=== PATIENT | male | born 1940 | race African-American/Black ===

== ENCOUNTER 2018-07-04 22:20 | Inpatient (IN) | payer MEDICARE, BC, MEDICAID ==
[~2018-07-04] VITALS: Ht 175.3 cm; Wt 88.0 kg
[~2018-07-04 22:20] MED LIST: AMLO5TAB4 PO; ASPI-1159 PO; ATOR-2 PO; CHOL100046 PO; CLOP75TA33 PO; LISI10TA5 MT; SUCCINYLCHOLINE CHLORIDE 200MG/10ML IV ONE; TAMS0.4C31 PO
[2018-07-04] MEDS ORDERED: ONDANSETRON HCL 4MG/2ML INJ IV STA (22:50)
[2018-07-04] MEDS ORDERED: SODIUM CHLORIDE 0.9% 1,000 ML IV ONE (22:50)
[2018-07-04] MEDS ORDERED: SUCCINYLCHOLINE CHLORIDE 200MG/10ML IV ONE (23:00)
[2018-07-04] MEDS ORDERED: SODIUM CHLORIDE 0.9% 1000ML BAG (SEPSIS BOLUS) IV ONE (23:00)
[2018-07-04] MEDS ORDERED: PIPERACILLIN/TAZ 3.375G PREMIX 50 ML IV ONE (23:00)
[2018-07-04] MEDS ORDERED: VANCOMYCIN 1 G PREMIX 200 ML IV ONE (23:00)
[2018-07-04] MEDS ORDERED: PROPOFOL 10MG/ML 100ML 100 ML IV ONE (23:00)
[2018-07-04] MEDS ORDERED: LEVETIRACETAM 1000MG/100ML 100 ML IV ONE (23:00)
[2018-07-04 23:15] LABS: HEMATOCRIT. 43.1 % (42.0-52.0); HEMOGLOBIN. 14.3 g/dL (14.0-18.0); MEAN CORPUSCULAR HEMOGLOBIN 33.9 pg (28.0-32.0); MEAN CORPUSCULAR VOLUME 102.3 fL (80.0-94.0); MEAN PLATELET VOLUME 7.2 fl (7.4-10.4); PLATELET 187 x1000/uL (130-400); RED BLOOD CELL COUNT 4.21 mill/uL (4.7-6.1); RED CELL DISTRIBUTION WIDTH 13.5 % (11.6-14.6)
[2018-07-04 23:22] LABS: CHLORIDE 111 mEq/L (98-107)
[2018-07-04 23:23] LABS: PROTHROMBIN TIME 10.5 sec (9.6-11.0)
[2018-07-04] MEDS ORDERED: ONDANSETRON HCL 4MG/2ML INJ IV PRN (23:30)
[2018-07-04] MEDS ORDERED: IPRATROPIUM/ALBUTEROL 0.5-3(2.5)MG/3ML NEB HHN PRN (23:30)
[2018-07-04] MEDS ORDERED: LORAZEPAM 2MG/ML CPJ IV PRN (23:30)
[2018-07-04] MEDS ORDERED: ACETAMINOPHEN 325MG TABLET NG PRN (23:30)
[2018-07-04 23:51] LABS: CLARITY URINE CLEAR (CLEAR); COLOR URINE YELLOW (YELLOW); KETONES URINE NEGATIVE (NEGATIVE); LEUKOCYTE ESTERASE URINE NEGATIVE (NEGATIVE); NITRITE URINE NEGATIVE (NEGATIVE); OCCULT BLOOD URINE NEGATIVE (NEGATIVE); PH URINE 5.5 (4.5-8.0); PROTEIN URINE TRACE (NEGATIVE)
[2018-07-05] VITALS (88 sets, daily range): BP systolic 100–152; BP diastolic 40–86
[2018-07-05] LABS: BG BASE EXCESS -3.1 mmol/L (-2.0-2.0); BG CARBOXYHEMOGLOBIN 0.3 % (0.5-1.5); BG DEOXYHEMOGLOBIN 0.2 % (0.0-5.0); BG FRACTION INSPIRED OXYGEN 100; BG HCO3 ACT 21.7 mmol/L (22.0-26.0); BG METHEMOGLOBIN 0.4 % (0.0-1.5); BG OXYGEN SATURATION 99.8 % (92.0-98.5); BG OXYHEMOGLOBIN 99.1 % (94.0-97.0); BG PCO2 38.2 mmHg (35.0-45.0); BG PH 7.373 (7.350-7.450); BG PIP 22 cmH2O; BG PO2 553.9 mmHg (75.0-100.0); BG SAMPLE SITE LEFT BRACHIAL; BG TIDAL VOLUME(mL) 550 mL; BG TOTAL HEMOGLOBIN 13.8 g/dL (12.0-18.0); BG VENT MODE VENT - A/C; BG VENT RATE 14 set
[2018-07-05 01:53] LABS: PLATELET ESTIMATE NORMAL
[2018-07-05] MEDS: DEXT 5%/0.45% NACL 1000ML 1,000 ML IV SCH ×2 (02:09→17:50)
[2018-07-05] MEDS: LEVETIRACETAM 1,000 MG in SODIUM CHLORIDE 0.9% 100 ML IV SCH ×3 (02:48→20:32)
[2018-07-05] MEDS: PROPOFOL 10MG/ML 100ML 100 ML IV PRN ×3 (04:37→23:55)
[2018-07-05 05:38] LABS: BASOPHILS % 0.3 % (0.0-2.0); EOSINOPHILS % 0.4 % (0.0-5.0); HEMATOCRIT. 40.7 % (42.0-52.0); HEMOGLOBIN. 13.4 g/dL (14.0-18.0); MEAN CORPUSCULAR HEMOGLOBIN 33.7 pg (28.0-32.0); MEAN CORPUSCULAR VOLUME 102.2 fL (80.0-94.0); MEAN PLATELET VOLUME 7.5 fl (7.4-10.4); MONOCYTES % 5.9 % (2.0-8.0); NEUTROPHILS % 81.4 % (40.0-76.0); PLATELET 187 x1000/uL (130-400); RED BLOOD CELL COUNT 3.98 mill/uL (4.7-6.1); RED CELL DISTRIBUTION WIDTH 13.6 % (11.6-14.6)
[2018-07-05 05:57] LABS: CHLORIDE 113 mEq/L (98-107)
[2018-07-05] MEDS ORDERED: PIPERACILLIN/TAZ 2.25G PREMIX 50 ML IV SCH (06:00)
[2018-07-05] MEDS ORDERED: DEXTROSE 50% WATER 50ML SYRINGE IV PRN (07:45)
[2018-07-05] MEDS ORDERED: PIPERACILLIN/TAZ 3.375G PREMIX 50 ML IV SCH ×2 (08:00→12:00)
[2018-07-05 08:23] LABS: BG BASE EXCESS -2.8 mmol/L (-2.0-2.0); BG CARBOXYHEMOGLOBIN 0.2 % (0.5-1.5); BG DEOXYHEMOGLOBIN 0.6 % (0.0-5.0); BG FRACTION INSPIRED OXYGEN 50; BG HCO3 ACT 21.7 mmol/L (22.0-26.0); BG METHEMOGLOBIN 0.1 % (0.0-1.5); BG OXYGEN SATURATION 99.4 % (92.0-98.5); BG OXYHEMOGLOBIN 99.1 % (94.0-97.0); BG PCO2 37.2 mmHg (35.0-45.0); BG PH 7.384 (7.350-7.450); BG SAMPLE SITE RIGHT RADIAL; BG TIDAL VOLUME(mL) 550 mL; BG TOTAL HEMOGLOBIN 14.2 g/dL (12.0-18.0); BG VENT MODE VENT - A/C; BG VENT RATE 14 set
[2018-07-05] MEDS: FAMOTIDINE 20MG/2ML VIAL IV SCH (08:50)
[2018-07-05] MEDS ORDERED: ENOXAPARIN 40MG/0.4ML SYR SUBCUT SCH (09:00)
[2018-07-05] MEDS ORDERED: FAMOTIDINE 20MG/2ML VIAL IV SCH (09:00)
[2018-07-05] MEDS: LAMOTRIGINE 25MG TABLET NG SCH ×2 (09:12→20:33)
[2018-07-05 10:00] LABS: CREATINE KINASE 265 IU/L (39-308)
[2018-07-05 10:15] LABS: BG BASE EXCESS -3.1 mmol/L (-2.0-2.0); BG CARBOXYHEMOGLOBIN 0.2 % (0.5-1.5); BG DEOXYHEMOGLOBIN 1.6 % (0.0-5.0); BG FRACTION INSPIRED OXYGEN 40; BG HCO3 ACT 22.1 mmol/L (22.0-26.0); BG METHEMOGLOBIN 0.2 % (0.0-1.5); BG OXYGEN SATURATION 98.4 % (92.0-98.5); BG PO2 130.7 mmHg (75.0-100.0); BG SAMPLE SITE RIGHT RADIAL; BG TIDAL VOLUME(mL) 500 mL; BG TOTAL HEMOGLOBIN 13.9 g/dL (12.0-18.0); BG VENT MODE VENT - A/C; BG VENT RATE 14 set
[2018-07-05] MEDS: BLOOD SUGAR DIAGNOSTIC STRIP TEST SCH ×3 (11:48→20:20)
[2018-07-05] MEDS: VANCOMYCIN 1 G PREMIX 200 ML IV SCH (11:49)
[2018-07-05] MEDS: INSULIN LISPRO 100 UNITS/ML SUBCUT SCH ×3 (11:51→20:20)
[2018-07-05] MEDS: PIPERACILLIN/TAZ 3.375G PREMIX 50 ML IV SCH (20:32)
[2018-07-05] MEDS ORDERED: VANCOMYCIN 1250MG in DEXTROSE 5% WATER 250ML IV SCH (21:00)
[2018-07-06] VITALS (88 sets, daily range): BP systolic 92–186; BP diastolic 60–137
[2018-07-06] MEDS ORDERED: PROPOFOL 10MG/ML 100ML 100 ML IV PRN (02:00)
[2018-07-06] MEDS: PIPERACILLIN/TAZ 3.375G PREMIX 50 ML IV SCH ×4 (02:19→21:00)
[2018-07-06] MEDS: DEXT 5%/0.45% NACL 1000ML 1,000 ML IV SCH (05:02)
[2018-07-06 05:44] LABS: BASOPHILS % 0.1 % (0.0-2.0); EOSINOPHILS % 3.5 % (0.0-5.0); HEMATOCRIT. 39.1 % (42.0-52.0); LYMPHOCYTES % 14.5 % (20.0-50.0); MEAN CORPUSCULAR HEMOGLOBIN 33.9 pg (28.0-32.0); MEAN CORPUSCULAR VOLUME 102.4 fL (80.0-94.0); MEAN PLATELET VOLUME 7.3 fl (7.4-10.4); MONOCYTES % 7.1 % (2.0-8.0); NEUTROPHILS % 74.8 % (40.0-76.0); PLATELET 171 x1000/uL (130-400); RED BLOOD CELL COUNT 3.82 mill/uL (4.7-6.1); RED CELL DISTRIBUTION WIDTH 13.5 % (11.6-14.6)
[2018-07-06] MEDS: BLOOD SUGAR DIAGNOSTIC STRIP TEST SCH ×2 (05:51→21:12)
[2018-07-06] MEDS: VANCOMYCIN 1 G PREMIX 200 ML IV SCH ×2 (05:52→23:31)
[2018-07-06] MEDS: INSULIN LISPRO 100 UNITS/ML SUBCUT SCH ×4 (06:01→21:00)
[2018-07-06 06:22] LABS: CHLORIDE 112 mEq/L (98-107)
[2018-07-06 06:40] LABS: PHOSPHORUS 2.5 mg/dL (2.5-4.9)
[2018-07-06 07:09] LABS: BG BASE EXCESS -1.7 mmol/L (-2.0-2.0); BG CARBOXYHEMOGLOBIN 1.1 % (0.5-1.5); BG DEOXYHEMOGLOBIN 5.6 % (0.0-5.0); BG HCO3 ACT 23.4 mmol/L (22.0-26.0); BG METHEMOGLOBIN 0.2 % (0.0-1.5); BG OXYGEN SATURATION 94.3 % (92.0-98.5); BG OXYHEMOGLOBIN 93.1 % (94.0-97.0); BG PCO2 40.8 mmHg (35.0-45.0); BG PH 7.376 (7.350-7.450); BG PO2 71.1 mmHg (75.0-100.0); BG SAMPLE SITE RIGHT RADIAL; BG TIDAL VOLUME(mL) 500 mL; BG TOTAL HEMOGLOBIN 13.9 g/dL (12.0-18.0); BG VENT MODE VENT - A/C; BG VENT RATE 14 set
[2018-07-06] MEDS ORDERED: POTASSIUM CHLORIDE 20MEQ/PACKET PO NR (07:15)
[2018-07-06] MEDS: FAMOTIDINE 20MG/2ML VIAL IV SCH (08:26)
[2018-07-06] MEDS: LAMOTRIGINE 25MG TABLET NG SCH ×2 (08:27→21:00)
[2018-07-06] MEDS: LEVETIRACETAM 1,000 MG in SODIUM CHLORIDE 0.9% 100 ML IV SCH ×2 (08:27→21:00)
[2018-07-06 11:40] LABS: BG BASE EXCESS -2.4 mmol/L (-2.0-2.0); BG CARBOXYHEMOGLOBIN 0.1 % (0.5-1.5); BG CPAP (cmH2O) 0 cm(H2O); BG DEOXYHEMOGLOBIN 1.4 % (0.0-5.0); BG HCO3 ACT 21.7 mmol/L (22.0-26.0); BG METHEMOGLOBIN 0.5 % (0.0-1.5); BG OXYGEN SATURATION 98.6 % (92.0-98.5); BG PCO2 35.8 mmHg (35.0-45.0); BG PH 7.401 (7.350-7.450); BG PO2 140.7 mmHg (75.0-100.0); BG SAMPLE SITE RIGHT RADIAL; BG TOTAL HEMOGLOBIN 14.3 g/dL (12.0-18.0); BG VENT MODE VENT - CPAP
[2018-07-06] MEDS ORDERED: BLOOD SUGAR DIAGNOSTIC STRIP TEST SCH (12:00)
[2018-07-06] MEDS ORDERED: KCL 20MEQ/100ML PREMIX 100 ML IV NR (12:30)
[2018-07-07] VITALS (22 sets, daily range): BP systolic 109–178; BP diastolic 60–98
[2018-07-07] MEDS: PIPERACILLIN/TAZ 3.375G PREMIX 50 ML IV SCH ×4 (03:00→22:02)
[2018-07-07] MEDS: BLOOD SUGAR DIAGNOSTIC STRIP TEST SCH ×4 (05:44→21:14)
[2018-07-07] MEDS: INSULIN LISPRO 100 UNITS/ML SUBCUT SCH ×4 (05:44→21:00)
[2018-07-07 05:57] LABS: BASOPHILS % 0.2 % (0.0-2.0); EOSINOPHILS % 3.4 % (0.0-5.0); HEMATOCRIT. 39.1 % (42.0-52.0); HEMOGLOBIN. 13.3 g/dL (14.0-18.0); LYMPHOCYTES % 15.1 % (20.0-50.0); MEAN CORPUSCULAR HEMOGLOBIN 34.8 pg (28.0-32.0); MEAN PLATELET VOLUME 7.4 fl (7.4-10.4); MONOCYTES % 8.5 % (2.0-8.0); NEUTROPHILS % 72.8 % (40.0-76.0); PLATELET 192 x1000/uL (130-400); RED BLOOD CELL COUNT 3.83 mill/uL (4.7-6.1); RED CELL DISTRIBUTION WIDTH 13.6 % (11.6-14.6)
[2018-07-07 06:00] LABS: PHOSPHORUS 2.9 mg/dL (2.5-4.9)
[2018-07-07] MEDS: LAMOTRIGINE 25MG TABLET NG SCH ×3 (09:00→21:14)
[2018-07-07] MEDS: LEVETIRACETAM 500MG/5ML CUP PO SCH ×2 (09:00→09:12)
[2018-07-07] MEDS: FAMOTIDINE 20MG/2ML VIAL IV SCH (09:21)
[2018-07-07] MEDS: SODIUM CHLORIDE 0.45% 1,000 ML IV SCH (09:21)
[2018-07-07] MEDS: LEVETIRACETAM 500MG TABLET PO SCH (21:14)
[2018-07-07] MEDS: VANCOMYCIN 1 G PREMIX 200 ML IV SCH (22:02)
[2018-07-08] VITALS: BP 120/85
[2018-07-08 04:00] VITALS: BP 136/68
[2018-07-08] MEDS: PIPERACILLIN/TAZ 3.375G PREMIX 50 ML IV SCH ×4 (05:58→22:23)
[2018-07-08] MEDS: SODIUM CHLORIDE 0.45% 1,000 ML IV SCH (05:59)
[2018-07-08] MEDS: BLOOD SUGAR DIAGNOSTIC STRIP TEST SCH ×4 (06:37→21:00)
[2018-07-08] MEDS: INSULIN LISPRO 100 UNITS/ML SUBCUT SCH ×4 (07:40→21:00)
[2018-07-08 07:41] LABS: BASOPHILS % 0.3 % (0.0-2.0); EOSINOPHILS % 4.3 % (0.0-5.0); HEMATOCRIT. 41.9 % (42.0-52.0); HEMOGLOBIN. 13.8 g/dL (14.0-18.0); LYMPHOCYTES % 21.6 % (20.0-50.0); MEAN CORPUSCULAR HEMOGLOBIN 33.8 pg (28.0-32.0); MEAN CORPUSCULAR VOLUME 102.5 fL (80.0-94.0); MEAN PLATELET VOLUME 7.1 fl (7.4-10.4); MONOCYTES % 6.9 % (2.0-8.0); NEUTROPHILS % 66.9 % (40.0-76.0); PLATELET 186 x1000/uL (130-400); RED BLOOD CELL COUNT 4.09 mill/uL (4.7-6.1); RED CELL DISTRIBUTION WIDTH 13.4 % (11.6-14.6)
[2018-07-08 08:00] VITALS: BP 160/69
[2018-07-08] MEDS: LAMOTRIGINE 25MG TABLET NG SCH ×2 (08:07→22:24)
[2018-07-08] MEDS: FAMOTIDINE 20MG/2ML VIAL IV SCH (08:07)
[2018-07-08] MEDS: LEVETIRACETAM 500MG TABLET PO SCH ×2 (08:07→22:24)
[2018-07-08] MEDS ORDERED: LORAZEPAM 2MG/ML CPJ IV PRN (09:09)
[2018-07-08 12:00] VITALS: BP 119/58
[2018-07-08] MEDS: VANCOMYCIN 1 G PREMIX 200 ML IV SCH (14:28)
[2018-07-08 16:00] VITALS: BP 120/68
[2018-07-08 20:00] VITALS: BP 140/73
[2018-07-09] VITALS: BP 158/79
[2018-07-09] MEDS: PIPERACILLIN/TAZ 3.375G PREMIX 50 ML IV SCH ×3 (03:45→17:49)
[2018-07-09 04:00] VITALS: BP 136/57
[2018-07-09] MEDS: BLOOD SUGAR DIAGNOSTIC STRIP TEST SCH ×3 (06:22→17:40)
[2018-07-09] MEDS: VANCOMYCIN 1 G PREMIX 200 ML IV SCH (06:56)
[2018-07-09 07:25] LABS: HEMATOCRIT. 42.3 % (42.0-52.0); HEMOGLOBIN. 14.1 g/dL (14.0-18.0); MEAN CORPUSCULAR HEMOGLOBIN 33.9 pg (28.0-32.0); MEAN CORPUSCULAR VOLUME 101.3 fL (80.0-94.0); MEAN PLATELET VOLUME 7.3 fl (7.4-10.4); NEUTROPHILS % 62.2 % (40.0-76.0); PLATELET 209 x1000/uL (130-400); RED BLOOD CELL COUNT 4.17 mill/uL (4.7-6.1); RED CELL DISTRIBUTION WIDTH 13.2 % (11.6-14.6)
[2018-07-09 07:26] LABS: BASOPHILS % 0.2 % (0.0-2.0); EOSINOPHILS % 5.1 % (0.0-5.0); LYMPHOCYTES % 24.8 % (20.0-50.0); MONOCYTES % 7.7 % (2.0-8.0)
[2018-07-09] MEDS: INSULIN LISPRO 100 UNITS/ML SUBCUT SCH ×3 (07:40→17:40)
[2018-07-09 08:00] VITALS: BP 168/83
[2018-07-09] MEDS: LEVETIRACETAM 500MG TABLET PO SCH (09:51)
[2018-07-09] MEDS: FAMOTIDINE 20MG/2ML VIAL IV SCH (09:52)
[2018-07-09] MEDS: LAMOTRIGINE 25MG TABLET NG SCH (09:52)
[2018-07-09 12:00] VITALS: BP 121/60
[2018-07-09 16:00] VITALS: BP 128/65
[2018-07-09 16:13] VITALS: BP 121/60
[2018-07-09] MEDS ORDERED: LEVE1000 MT (16:39)
[2018-07-09] MEDS ORDERED: LAMO25TA3 PO (16:41)
[2018-07-09] MEDS ORDERED: LAM25 MT (16:41)
[2018-07-09] MEDS ORDERED: LAMOTRIGINE 25MG TABLET NG SCH (21:00)
== END 2018-07-09 19:56 | DRG 208 ==
LOC: ER 22:45 → MICUSO 23:12 → EDBEDREQ 23:13 → EDBEDREQTM 23:13 → ENRESERV 23:31 → 7WST 07-07 13:10
PROVIDERS: ADMIT Internal Medicine Geriatric Medicine; ATTEND Internal Medicine Geriatric Medicine
PROC: 5A1945Z Respiratory Ventilation, 24-96 Consecutive Hours (ICD-10-PCS; principal; 2018-07-04)
PROC: 0BH17EZ Insertion of Endotracheal Airway into Trachea, Via Natural or Artificial Opening (ICD-10-PCS; 2018-07-04)
DX: J96.00 Acute respiratory failure, unspecified whether with hypoxia or hypercapnia (principal); E43 Unspecified severe protein-calorie malnutrition; N17.9 Acute kidney failure, unspecified; E87.2 Acidosis; J98.11 Atelectasis; I69.354 Hemiplegia and hemiparesis following cerebral infarction affecting left non-dominant side; E87.6 Hypokalemia; E11.65 Type 2 diabetes mellitus with hyperglycemia; N18.9 Chronic kidney disease, unspecified; I12.9 Hypertensive chronic kidney disease with stage 1 through stage 4 chronic kidney disease, or unspecified chronic kidney disease; E78.5 Hyperlipidemia, unspecified; D75.89 Other specified diseases of blood and blood-forming organs; E11.22 Type 2 diabetes mellitus with diabetic chronic kidney disease; G40.401 Other generalized epilepsy and epileptic syndromes, not intractable, with status epilepticus; N40.0 Benign prostatic hyperplasia without lower urinary tract symptoms; R74.8 Abnormal levels of other serum enzymes; R00.1 Bradycardia, unspecified; Z68.28 Body mass index [BMI] 28.0-28.9, adult; Z78.1 Physical restraint status; Z79.899 Other long term (current) drug therapy
CPT/HCPCS: 31500; 36415; 36600; 71045; 80048; 80202; 82375; 82542; 82550; 82805; 82962; 83605; 83735; 84100; 84145; 84478; 84484; 87070; 93005; 93970; 94002; 96365; 96367; 96375; 97110; 97116; 97162; 97166; 97530; 99291; A6261; J0330; J1650; J1953; J2405; J2543; J2704; J3370; J3480; J3490; J7030; J7050; J7060; J7620; A4315

== ENCOUNTER 2019-08-26 20:29 | Emergency (ER) | payer MEDICARE, BC, MEDICAID ==
[~2019-08-26] VITALS: Ht 175.3 cm; Wt 102.0 kg
[~2019-08-26 20:29] MED LIST changes: -ASPI-1159 PO; +ASPI-1497 PO; +LAM25 MT; +LAMO25TA3 PO; +LEVE1000 MT; -SUCCINYLCHOLINE CHLORIDE 200MG/10ML IV ONE
[2019-08-26] MEDS ORDERED: HYDROCODONE/ACETAMINOPHEN 5/325MG TABLET PO STA (20:54)
[2019-08-26] MEDS ORDERED: KETOROLAC 30MG/ML VIAL IV STA (20:54)
[2019-08-26 22:31] LABS: BASOPHILS % 0.2 % (0.0-2.0); EOSINOPHILS % 2.9 % (0.0-5.0); HEMATOCRIT. 43.4 % (42.0-52.0); HEMOGLOBIN. 14.6 g/dL (14.0-18.0); LYMPHOCYTES % 18.6 % (20.0-50.0); MEAN CORPUSCULAR HEMOGLOBIN 33.6 pg (28.0-32.0); MEAN CORPUSCULAR VOLUME 100.4 fL (80.0-94.0); MEAN PLATELET VOLUME 7.2 fl (7.4-10.4); MONOCYTES % 7.8 % (2.0-8.0); NEUTROPHILS % 70.5 % (40.0-76.0); PLATELET 223 x1000/uL (130-400); RED BLOOD CELL COUNT 4.33 mill/uL (4.7-6.1)
[2019-08-26 22:36] LABS: CHLORIDE 106 mEq/L (98-107)
[2019-08-27 00:45] VITALS: BP 127/64
== END 2019-08-27 02:44 | disposition home or self-care (01) ==
LOC: ER 20:29
DX: M17.11 Unilateral primary osteoarthritis, right knee (principal); F03.90 Unspecified dementia, unspecified severity, without behavioral disturbance, psychotic disturbance, mood disturbance, and anxiety; G40.909 Epilepsy, unspecified, not intractable, without status epilepticus; I10 Essential (primary) hypertension; I69.351 Hemiplegia and hemiparesis following cerebral infarction affecting right dominant side
CPT/HCPCS: 36415; 73560; 80053; 83880; 84484; 85025; 93005; 96374; 99285; J1885